=== PATIENT | female | born 1960 | race Caucasian/White ===

== ENCOUNTER → 2020-04-16 08:02 | Outpatient (CLI) | payer SELFPAY ==
--- NOTE | ~2020-04-16 | US_ITS ---
US soft tissue LE RT 04/16/2020 08:29 Indication: Palpable abnormality right lateral hip Procedure: High-resolution ultrasound of the area of palpable concern right lateral hip area Comparison: No prior studies for comparison. Findings: There is normal heterogeneous echotexture in the area of palpable concern without discrete solid or cystic mass. No abnormal fluid collections. Impression: 1: Normal limited ultrasound of the right lateral hip region without discrete mass. Reviewed, dictated and finalized at location B. Impression: 1: Normal limited ultrasound of the right lateral hip region without discrete m ass.
== END ==
PROVIDERS: Visit Provider Chiropractor
DX: R22.41 Localized swelling, mass and lump, right lower limb (principal)
CPT/HCPCS: 76882

== ENCOUNTER 2021-04-01 11:41 | Emergency (ER) | payer OTHER, SELFPAY ==
--- NOTE | 2021-04-01 11:50 | ED.GENADULT ---
HPI - General Adult General Chief complaint: Head Injury Stated complaint: head injury Source: patient Mode of arrival: ambulatory Limitations: no limitations History of Present Illness HPI narrative: 61 y/o female. PMH includes: DM II. Presents to [facility] today with acute complaints of closed head injury, hit her head on metal shelving. 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 When client stood up she hit her head on shelving above. Incident occurred approximately 30 minutes ago. Initially, she reports to have had SANDRA, mild nausea, and soreness to area. However, these symptoms are now improved. No focal weakness or LOC. No visual changes or loss. No spontaneous epistasis. She is NOT on active anticoagulation. She is without additional acute complaints of illness upon exam. Related Data Home Medications Medication Instructions Recorded Confirmed glimepiride 4 mg tablet 4 mg PO QAM 04/24/20 09/02/20 insulin NPH-regular 70-30 U-100 16 unit SUB-Q DAILY ml 04/24/20 09/02/20 insulin 100 unit/mL subcutaneous pen metformin 500 mg tablet 1,000 mg PO BID tablet 04/24/20 09/02/20 Allergies Allergy/AdvReac Type Severity Reaction Status Date / Time brompheniramine Allergy Mild unknown Verified 09/02/20 13:36 carbinoxamine Allergy Mild unknown Verified 09/02/20 13:36 lidocaine Allergy Unknown unknown Verified 09/02/20 13:36 Review of Systems Review of Systems: Narrative: CONSTITUTIONAL: Denies fever, chills, sweats. EYES: Denies visual changes, redness, discharge. ENT: Head injury. Denies rhinorrhea, congestion, sore throat, otalgia. CARDIOVASCULAR: Denies chest pain, palpitations, edema. RESPIRATORY: Denies dyspnea, wheezing, cough GASTROINTESTINAL: Denies abdominal pain, nausea, vomiting, diarrhea. GENITOURINARY: Denies dysuria, hematuria, abnormal discharge SKIN: Denies rash or itching. MUSCULOSKELETAL: Denies acute back pain, joint pain, or myalgia. NEUROLOGIC: Denies numbness, or focal weakness. PSYCHIATRIC: Denies anxiety or depression. All systems reviewed & are unremarkable except as noted in HPI and below PMFSH Past Medical History Medical History Diabetes Surgical History Surgical History History of appendectomy (~1979) History of carpal tunnel release (~2009) Right History of right knee surgery (~1975) History of total abdominal hysterectomy and bilateral salpingo-oophorectomy (~2006) History of total hysterectomy (~1979) Family History Family History Mother Diabetes mellitus Father Parkinson disease Social History Social History Smoking status: Never smoker Second hand tobacco smoke exposure: No Alcohol intake: current Substance use: never Substance use type: does not use Gender identity (if verbalized by the patient): Female Exam Narrative: Exam Narrative: GENERAL: This is a well-nourished, well-developed patient, in no apparent distress. HEAD: normocephalic. With dime sized area of soft tissue swelling, goose egg, overlying upper LT head. No laceration. No fluctuance. No open wounds. EYES: PERRL. Sclera clear/white. Vision is grossly intact. EARS: External ears normal, auditory canals clear and without drainage, TMs normal without perforation. Hearing grossly intact. NOSE: External nose normal with no obvious nasal discharge, nares without redness, no rhinorrhea. THROAT: Mucous membranes moist, posterior pharynx clear. NECK: Neck supple, non-tender without lymphadenopathy, masses or thyromegaly. CARDIOVASCULAR: Regular rate and rhythm without murmurs, gallops, or rubs. RESPIRATORY: Clear to auscultation. Breath sounds equal bilaterally. No wheezes, rales, or rhonchi. GASTROINTESTINAL: Abdomen soft, non-tender, no
[2021-04-01 11:52] VITALS: BP 144/80; PULSE 69; RESP 16; TEMP 36.1; O2SAT 100
== END 2021-04-01 12:05 | disposition home or self-care (01) ==
PROVIDERS: Emergency Provider Nurse Practitioner Adult Health
DX: S09.90XA Unspecified injury of head, initial encounter (principal); W22.8XXA Striking against or struck by other objects, initial encounter; E11.9 Type 2 diabetes mellitus without complications
CPT/HCPCS: 99212; G0463

== ENCOUNTER 2025-01-26 12:05 | Emergency (ER) | payer OTHER, SELFPAY ==
[2025-01-26 12:16] VITALS: BP 128/76; PULSE 83; RESP 16; TEMP 36.2; O2SAT 98
--- NOTE | 2025-01-26 12:44 | ED_ITS ---
HPI - URI/Sore Throat General Chief Complaint: Upper Respiratory Infection Stated Complaint: Cough Time Seen by Provider: 01/26/25 12:44 Source: patient Mode of arrival: ambulatory Limitations: no limitations History of Present Illness HPI Narrative: Patient presents today with congestion and a productive cough x 1 week. She has been taking Tylenol and Nidhi at home. Denies any SOB, difficulty swallowing, or fever. Related Data Home Medications ?Medication ?Instructions ?Recorded ?Confirmed ?Last Taken ?Type glimepiride 4 mg tablet 4 mg PO QAM 04/24/20 01/26/25 Unknown History metformin 500 mg tablet 1,000 mg PO BID 04/24/20 01/26/25 Unknown History insulin pump 01/26/25 Unknown History kn 01/26/25 Unknown History meloxicam 15 mg tablet mg 01/26/25 Unknown History semaglutide 1 mg/dose (4 mg/3 mL) mg subcut 01/26/25 Unknown History subcutaneous pen injector (Ozempic) valacyclovir 500 mg tablet mg 01/26/25 Unknown History Allergies Allergy/AdvReac Type Severity Reaction Status Date / Time brompheniramine Allergy Mild unknown Verified 01/26/25 12:25 carbinoxamine Allergy Mild unknown Verified 01/26/25 12:25 lidocaine Allergy Unknown unknown Verified 01/26/25 12:25 Review of Systems Review of Systems: CONSTITUTIONAL: Denies body aches, fever, chills, or sweats. EYES: Denies visual changes, redness, or discharge. ENT: Reports rhinorrhea and congestion. Denies sore throat, or otalgia. CARDIOVASCULAR: Denies chest pain, palpitations, or edema. RESPIRATORY: Reports cough. Denies dyspnea. GASTROINTESTINAL: Denies abdominal pain, nausea, vomiting, or diarrhea. GENITOURINARY: Denies dysuria or hematuria. SKIN: Denies rash, itching, or wounds. MUSCULOSKELETAL: Denies back pain, joint pain, or myalgia. NEUROLOGIC: Denies headache, numbness, tingling, or weakness. PSYCH: Denies depression or anxiety. All systems reviewed & are unremarkable except as noted in HPI and below PMFSH Past Medical History Medical History (Updated 01/26/25 @ 12:53 by Susana Christie, [employer]CR[employer]ING [employer]PER[employer]OR) Diabetes Surgical History Surgical History History of carpal tunnel release (~2009) Right History of appendectomy (~1979) History of right knee surgery (~1975) History of total abdominal hysterectomy and bilateral salpingo-oophorectomy (~2006) History of total hysterectomy (~1979) Family History Family History Mother Diabetes mellitus Father Parkinson disease Social History Social History Smoking status: Never smoker Second hand tobacco smoke exposure: No Alcohol intake: current Alcohol use details: consumes 2 glasses of wine occasionally Substance use: never Substance use type: does not use Gender identity (if verbalized by the patient): Female Comments At time of signature, I have reviewed and agree with nursing past medical, surgical, social and family history unless otherwise noted. Please see nursing chart for further information. There is no relevant family history pertinent to the presenting complaint. Exam Narrative: GENERAL: Well-appearing, well-nourished, and in no acute distress. EYES: EOMI. No redness or drainage. Conjunctivae normal. ENT: Mucous membranes pink and moist. Nares clear. Rhinorrhea noted. TMs normal bilaterally. Normal Throat with no tonsillar exudate, uvula midline. Nasal congestion noted. NECK: Normal AROM. Supple. No lymphadenopathy. CHEST: No respiratory distress. Clear to auscultation. HEART: Regular rate and rhythm. No murmur appreciated. Normal peripheral pulses. ABDOMEN: Soft, nontender, nondistended, normal active bowel sounds. SKIN: Warm, dry, no rash. Capillary refill normal. Normal skin turgor. NEURO: No focal deficits. Alert and oriented x3. Gait steady. PSYCH: Normal affect. No signs of depression or anxiety. Course Course Level of Care: Express Care Visit Vital Signs Vital signs: Vital Signs Temperature 97.2 F L 01/26/25 12:16 Pulse Rate 83 01/26/25 12:16 Respiratory Rate 16 01/26/25 12:16 Blood Pressure 128/76 01/26/25 12:16 Pulse Oximetry 98 01/26/25 12:16 Temperature 97.2 F L 01/26/25 12:16 Pulse Rate 83 01/26/25 12:16 Respiratory Rate 16 01/26/25 12:16 Blood Pressure 128/76 01/26/25 12:16 Pulse Oximetry 98 01/26/25 12:16 Reviewed. MDM - URI/Sore Throat MDM Narrative Medical decision making narrative: Discussed physical exam findings. Advised supportive measures and signs/symptoms to go to the ER. Pt is appropriate for outpt treatment and follow up. Differential Diagnosis Differential diagnosis: Likely upper respiratory infection, sinusitis, viral infection and bronchitis Critical Care Time Critical Care Time Critical Care Time: No Discharge Plan Discharge Clinical Impression: Sinusitis Qualifiers: Sinusitis location: frontal Chronicity: acute Recurrence: non-recurrent Qualified Code(s): J01.10 - Acute frontal sinusitis, unspecified Patient Disposition: Home Condition: Stable Instructions: Sinusitis (ED) Additional Instructions: Take antibiotic as prescribed. Recommend Flonase spray and Zyrtec (or Claritin/Nidhi) over the counter Cough syrup may cause drowsiness; avoid driving or take it at night time. Tylenol 1000mg every 8 hours as needed for pain Symptomatic treatment includes: rest, fluids, and increase humidity of the air at home. Follow up with your primary care provider in 1 week. Go to the ER for worsening symptoms or concerns. Patient Language: Spanish Prescriptions: New amoxicillin-pot clavulanate 875-125 mg tablet 1 tablet PO Q12H Qty: 7 0RF No Action meloxicam 15 mg tablet valacyclovir 500 mg tablet Ozempic 1 mg/dose (4 mg/3 mL) pen injector SUBCUT kn insulin pump metformin 500 mg tablet 1,000 mg PO BID glimepiride 4 mg tablet 4 mg PO QAM Rx Instructions: administer with breakfast pravastatin 40 mg tablet 40 mg PO DAILY Qty: 30 11RF irbesartan 150 mg tablet 150 mg PO DAILY Qty: 30 11RF Follow-up/Referrals: PHYSICIAN,VERTICAL MILL OPERATOR [Primary Care Provider] - Time of Disposition: 12:53
== END 2025-01-26 12:57 | disposition home or self-care (01) ==
DX: J01.10 Acute frontal sinusitis, unspecified (principal); E11.9 Type 2 diabetes mellitus without complications; Z79.84 Long term (current) use of oral hypoglycemic drugs
CPT/HCPCS: 99213; G0463